=== PATIENT | male | born 1975 | race Caucasian/White ===

== ENCOUNTER 2017-08-06 21:25 | Emergency (ER) | payer OTHER ==
[2017-08-06 21:26] VITALS: BMI 29.0
--- NOTE | 2017-08-06 21:56 | C.PDOC ---
Time Seen by Provider: 08/06/17 21:53 Chief Complaint (Nursing): Abdominal Pain Past Medical History Vital Signs: Last Vital Signs Temp 100.1 F H 08/06/17 21:43 Pulse 90 08/06/17 21:43 Resp 14 08/06/17 21:43 BP 110/70 08/06/17 21:43 Pulse Ox 97 08/06/17 21:43 Family History: States: Unknown Family Hx - Social History Hx Tobacco Use: Yes Hx Alcohol Use: Yes Hx Substance Use: No - Immunization History Hx Tetanus Toxoid Vaccination: No Hx Influenza Vaccination: No Hx Pneumococcal Vaccination: No ED Course And Treatment O2 Sat by Pulse Oximetry: 97 Disposition - Disposition
--- NOTE | 2017-08-06 22:08 | C.PDOC ---
History Of Present Illness <Ever Duggan - Last Filed: 08/06/17 22:08> <Dayan Boss - Last Filed: 08/07/17 01:18> 42 year old male presents to the ED c/o abdominal pain, body aches for the past 2 days. Patient reports he tolerates PO with no problem. Patient denies fever, nausea, vomit, diarrhea, dysuria, hematuria, back pain. (Ever Duggan) History Per: Patient History/Exam Limitations: no limitations Onset/Duration Of Symptoms: Days Location Of Pain/Discomfort: Periumbilical Radiation Of Pain To:: None Quality Of Discomfort: "Pain" Associated Symptoms: denies: Fever, Nausea, Vomiting Exacerbating Factors: None Alleviating Factors: None Recent travel outside of the [place]: No Additional History Per: Patient <Ever Duggan - Last Filed: 08/06/17 22:08> <Dayan Boss - Last Filed: 08/07/17 01:18> Time Seen by Provider: 08/06/17 21:53 Chief Complaint (Nursing): Abdominal Pain Past Medical History Reviewed: Historical Data, Nursing Documentation, Vital Signs - Medical History PMH: No Chronic Diseases Surgical History: No Surg Hx Family History: States: Unknown Family Hx - Social History Hx Tobacco Use: Yes Hx Alcohol Use: Yes Hx Substance Use: No - Immunization History Hx Tetanus Toxoid Vaccination: No Hx Influenza Vaccination: No Hx Pneumococcal Vaccination: No <Ever Duggan - Last Filed: 08/06/17 22:08> Vital Signs: Last Vital Signs Temp 99.7 F H 08/06/17 23:47 Pulse 87 08/06/17 23:47 Resp 20 08/06/17 23:47 BP 117/69 08/06/17 23:47 Pulse Ox 98 08/06/17 23:47 Review Of Systems Constitutional: Negative for: Fever, Chills Cardiovascular: Negative for: Chest Pain Respiratory: Negative for: Cough, Shortness of Breath Gastrointestinal: Positive for: Abdominal Pain. Negative for: Nausea, Vomiting Genitourinary: Negative for: Dysuria, Hematuria Skin: Negative for: Rash Neurological: Negative for: Weakness, Numbness <Ever Duggan - Last Filed: 08/06/17 22:08> Physical Exam - Physical Exam Appears: Non-toxic, No Acute Distress Skin: Normal Color, Warm, Dry Head: Atraumatic, Normacephalic Nose: No Discharge Oral Mucosa: Moist Neck: Normal ROM, Supple Chest: Symmetrical Cardiovascular: Rhythm Regular, No Murmur Respiratory: Normal Breath Sounds, No Rales, No Rhonchi, No Wheezing Gastrointestinal/Abdominal: Soft, Tenderness (Mild periumbilical to palpation), No Distention, No Rebound Extremity: Normal ROM, No Pedal Edema, No Calf Tenderness, No Swelling Neurological/Psych: Oriented x3, Normal Speech, Normal Cognition Gait: Steady <Ever Duggan - Last Filed: 08/06/17 22:08> ED Course And Treatment O2 Sat by Pulse Oximetry: 97 (On RA) Pulse Ox Interpretation: Normal <Ever Duggan - Last Filed: 08/06/17 22:08> - Laboratory Results Result Diagrams: 08/06/17 22:04 08/06/17 22:04 Pulse Ox Interpretation: Normal Reevaluation Time: 01:14 Reassessment Condition: Improved <Dayan Boss - Last Filed: 08/07/17 01:18> Medical Decision Making <Ever Duggan - Last Filed: 08/06/17 22:08> <Dayan Boss - Last Filed: 08/07/17 01:18> Medical Decision Making: Impression : abdominal pain Plan: * Blood work * UA (Ever Duggan) Disposition <Ever Duggan - Last Filed: 08/06/17 22:08> Counseled Patient/Family Regarding: Studies Performed, Diagnosis, Need For Followup, Rx Given - Disposition Disposition Time: 00:30 <Dayan Boss - Last Filed: 08/07/17 01:18> - Disposition Referrals: Bravo Guzman MD [Staff Provider] - Disposition: HOME/ ROUTINE Condition: FAIR Prescriptions: Ciprofloxacin [Cipro] 1 tab PO BID #14 tab Metronidazole [Flagyl] 500 mg PO TID #21 tablet Instructions: Abdominal Pain (ED), Colitis (ED) Forms: [employer] (Nepalese) - Clinical Impression Clinical Impression: Abdominal pain, Colitis - Scribe Statement The provider has reviewed the documentation as recorded by the Scribe <Ever Duggan - Last Filed: 08/06/17 22:08> <Dayan Boss - Last Filed: 08/07/17 01:18> - Scribe Statement Magdaleno Dempsey All medical record entries made by the Scribe were at my direction and personally dictated by me. I have reviewed the chart and agree that the record accurately reflects my personal performance of the history, physical exam, medical decision making, and the department course for this patient. I have also personally directed, reviewed, and agree with the discharge instructions and disposition. (Ever Duggan)
[2017-08-06 22:09] LABS: BASO % 0.5 % (0.0-2.0); EOS % 0.4 % (0.0-4.0); HEMATOCRIT 47.2 % (35.0-51.0); LYMPH # 1.2 K/uL (1.0-4.3); MEAN CELL VOLUME 92.3 fL (80.0-94.0); MEAN CORPUSCULAR HEMOGLOBIN 31.8 pg (27.0-31.0); MEAN CORPUSCULAR HGB CONC 34.4 g/dL (33.0-37.0); MEAN PLATELET VOLUME 8.7 fL (7.2-11.7); MONO # 0.6 K/uL (0.0-0.8); MONO % 8.3 % (0.0-10.0); NRBC % 0.1 % (0.0-2.0); RED CELL DISTRIBUTION WIDTH 12.7 % (11.5-14.5); WHITE BLOOD COUNT 7.3 K/uL (4.8-10.8)
[2017-08-06 22:23] LABS: ALB/GLOB RATIO 1.3 (1.0-2.1); ALKALINE PHOSPHATASE 58 U/L (38-126); ALT/SGPT 64 U/L (21-72); AST/SGOT 41 U/L (17-59); BILIRUBIN,TOTAL 0.6 mg/dL (0.2-1.3); BLOOD UREA NITROGEN 12 mg/dL (9-20); CALCIUM 8.4 mg/dl (8.6-10.4); CARBON DIOXIDE 33 mmol/L (22-30); CHLORIDE 97 mmol/L (98-107); GFR AFRICAN-AMERICAN > 60; GLUCOSE,RANDOM 102 mg/dL (75-110); POTASSIUM 4.1 mmol/L (3.6-5.2); SODIUM 136 mmol/L (132-148); TOTAL PROTEIN 7.8 g/dL (6.3-8.3)
[2017-08-06 22:31] LABS: RBC URINE 9 /hpf (0-3); URINE BILIRUBIN NEGATIVE (NEGATIVE); URINE BLOOD 1+ (NEGATIVE); URINE COLOR Yellow (YELLOW); URINE GLUCOSE (UA) NORMAL (Normal); URINE KETONE TRACE mg/dL (NEGATIVE); URINE LEUKOCYTE ESTERASE NEG Leu/uL (Negative); URINE PROTEIN NEGATIVE (NEGATIVE); URINE UROBILINOGEN NORMAL mg/dL (0.2-1.0); WBC URINE < 1 /hpf (0-5)
[2017-08-06] MEDS ORDERED: Iodixanol 320 MG/ML 100 ML BOTTLE IV ONE (23:39)
[2017-08-06 23:49] VITALS: RESP 20
--- NOTE | 2017-08-07 00:51 | CT ---
EXAM: CT Abdomen and Pelvis With Intravenous Contrast EXAM DATE/TIME: 08/06/2017 11:07 PM CLINICAL HISTORY: 42 years old, male; Pain; Abdominal pain; Additional info: Rlq pain TECHNIQUE: Axial computed tomography images of the abdomen and pelvis with intravenous contrast. All CT scans at this facility use one or more dose reduction techniques, viz.: automated exposure control; ma/kV adjustment per patient size (including targeted exams where dose is matched to indication; i.e. head); or iterative reconstruction technique. Coronal and sagittal reformatted images were created and reviewed. CONTRAST: 100 mL of administered intravenously. COMPARISON: There are no prior studies for comparison. FINDINGS: Lower thorax: Heart size is normal. There are small calcified mediastinal nodes. Lung bases are clear ABDOMEN: Liver: There is fatty infiltration of the liver. Gallbladder and bile ducts: unremarkable Pancreas: Pancreas is mildly atrophic. Spleen: unremarkable Adrenals: unremarkable Kidneys and ureters: unremarkable Stomach and bowel: Stomach is incompletely distended which accentuates the gastric wall.Rotation is normal. There are mildly distended small bowel loops in the left upper quadrant. Distal and terminal ileum are distended with fluid and air. Appendix is unremarkable. Colon is incompletely distended which limits evaluation. There is mild fatty infiltration of the descending colon wall. There is a mildly distended loop of sigmoid in the pelvis. There is mild wall thickening. Appendix: See stomach and bowel PELVIS: Bladder: unremarkable Reproductive: Seminal vesicles and prostate are unremarkable. ABDOMEN and PELVIS: Intraperitoneal space: There is no free air or free fluid. Bones/joints: There are no acute osseous abnormalities. Soft tissues: There is a small fat containing umbilical hernia. Vasculature: Vascular structures are unremarkable. 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 IMPRESSION: Fatty liver; no CT findings of appendicitis; probable ileus, no obstruction; possible sigmoid colitis Additional findings as described above.
[2017-08-07 01:33] VITALS: BP 129/82; PULSE 82; TEMP 98.3; O2SAT 99
== END 2017-08-07 01:33 | disposition home or self-care (01) ==
LOC: C.ER 21:25
DX: K52.9 Noninfective gastroenteritis and colitis, unspecified (principal); R10.9 Unspecified abdominal pain; Z87.891 Personal history of nicotine dependence
CPT/HCPCS: 74177; 80053; 81001; 85025; 99285; Q9967